=== PATIENT | female | born 1995 | race African-American/Black ===

== ENCOUNTER 2017-09-05 10:01 | Emergency (ER) | payer SELFPAY, OTHER | END 2017-09-05 12:10 | disposition home or self-care (01) | LOC: ERS 10:01 | DX: H10.9 Unspecified conjunctivitis (principal); F17.210 Nicotine dependence, cigarettes, uncomplicated | CPT/HCPCS: 99282 ==

== ENCOUNTER 2017-10-19 19:02 | Emergency (ER) | payer SELFPAY ==
[2017-10-19] MEDS ORDERED: Ibuprofen 800 MG TAB ONE (19:29)
[2017-10-19] MEDS ORDERED: Acetaminophen 500 MG TAB ONE (20:10)
== END 2017-10-19 20:12 | disposition home or self-care (01) ==
LOC: ERS 19:02
DX: J10.1 Influenza due to other identified influenza virus with other respiratory manifestations (principal); F17.210 Nicotine dependence, cigarettes, uncomplicated
CPT/HCPCS: 99283

== ENCOUNTER 2018-03-16 14:26 | Emergency (ER) | payer OTHER, SELFPAY ==
[2018-03-16] MEDS ORDERED: Lidocaine Viscous Sol 2% 15 ml UD Cup ONE (15:46)
[2018-03-16] MEDS ORDERED: Mag-Al 1200 mg/1200 mg/30 ML UDCUP ONE (15:46)
== END 2018-03-16 17:24 | disposition home or self-care (01) ==
LOC: ERS 14:26
DX: K59.00 Constipation, unspecified (principal); J40 Bronchitis, not specified as acute or chronic; F17.210 Nicotine dependence, cigarettes, uncomplicated
CPT/HCPCS: 99283

== ENCOUNTER 2018-04-01 22:50 | Emergency (ER) | payer SELFPAY ==
[2018-04-01 23:21] LABS: Pregnancy Test - Urine (BHCG) Negative (Negative); Pregu Control Background? CLEAR/WHITE (CLR/WHITE); Pregu Control Bar Appear? YES (CONTROL BAR); Specific Gravity 1.033 (1.002-1.036)
[2018-04-01 23:31] LABS: Bilirubin Small (Negative); Blood, Urine Negative (Negative); Clarity Cloudy (Clear); Glucose, Urine (Dipstick) Negative (Negative); Leukocyte Trace (Negative); Nitrite Negative (Negative); Protein, Urine (Dipstick) Trace mg/dL (Neg-Trace)
[2018-04-01 23:32] LABS: Bacteria/HPF 2+ HPF (None Seen); Hyaline Casts/LPF NONE SEEN LPF (0-3 Hyaline); RBC/HPF None Seen HPF (0-3); Specific Gravity, Urine 1.033 (1.002-1.036); WBC/HPF 0-3 HPF (0-3)
== END 2018-04-02 00:25 | disposition home or self-care (01) ==
LOC: SCSER 22:50
DX: A60.04 Herpesviral vulvovaginitis (principal)
CPT/HCPCS: 81003; 81015; 81025; 99283

== ENCOUNTER 2018-11-17 19:44 | Emergency (ER) | payer SELFPAY ==
[2018-11-17 20:27] LABS: #Basophils 0.1 thou/uL (0.0-0.2); #Eosinphils 0.2 thou/uL (0.0-0.7); #Lymphocytes 3.1 thou/uL (1.20-3.40); #Monocytes 0.5 thou/uL (0.11-0.59); #Neutrophils 6.1 thou/uL (1.40-6.50); %Basophils 0.8 % (0.0-1.0); %Eosinophils 2.4 % (0.0-10.0); %Lymphocytes 30.9 % (21.0-51.0); %Monocytes 5.4 % (0.0-10.0); %Neutrophils 60.5 % (42.0-75.0); Hemoglobin 11.7 g/dL (12.0-16.0); Mean Corpuscular Hemoglobin 27.1 pg (27.0-31.0); Mean Corpuscular Volume 84.7 fL (78.0-98.0); Mean Platelet Volume 9.3 fL (7.4-10.4); Platelet Count 336 thou/uL (130-400); RBC Distribution Width 13.6 % (11.5-14.5); Red Blood Cell (RBC) Count 4.34 mill/uL (4.20-5.40)
[2018-11-17 21:00] LABS: BHCG - Serum Negative (NEGATIVE); Pregs Control Background? CLEAR/WHITE (CLR/WHITE); Pregs Control Bar Appear? YES (CONTROL BAR)
== END 2018-11-17 21:35 | disposition home or self-care (01) ==
LOC: ERS 19:44
DX: N94.6 Dysmenorrhea, unspecified (principal); F17.210 Nicotine dependence, cigarettes, uncomplicated
CPT/HCPCS: 36415; 84703; 85025; 99284

== ENCOUNTER 2019-03-11 14:08 | Emergency (ER) | payer SELFPAY | END 2019-03-11 15:13 | disposition home or self-care (01) | LOC: ERS 14:08 | DX: M79.641 Pain in right hand (principal); F17.210 Nicotine dependence, cigarettes, uncomplicated | CPT/HCPCS: 99283 ==

== ENCOUNTER 2019-03-24 16:05 | Emergency (ER) | payer SELFPAY ==
[2019-03-24 17:04] LABS: Bilirubin Negative (Negative); Blood, Urine Negative (Negative); Clarity CLEAR (Clear); Glucose, Urine (Dipstick) Negative (Negative); Leukocyte Negative (Negative); Nitrite Negative (Negative); Protein, Urine (Dipstick) Negative (Neg-Trace); Urobilinogen 0.2 mg/dL (0.2-1.0); pH, Urine 6.5 (5.0-9.0)
--- NOTE | 2019-03-24 17:17 | ULT ---
OB ultrasound HISTORY: Early with history of fall. Multiple longitudinal and transverse images of the pelvis is obtained using multi hertz curvilinear t ransabdominal as well as endovaginal transducers. Real-time, color flow and M-mode sonography is used to evaluate the pelvis. The uterus measures 8.5 x 4.4 x 6.2 cm. There is a gestational sac and pole seen. Gestational sac measures 16 mm a gestational age of 6 weeks 3 days. [place]-rump length measures 5 mm giving a gestational age of 6 weeks 2 days. Overall the fetus has an estimated gestational age of 6 weeks 3 days and an estimated date of delivery of 11/04. Cardiac activity is confirmed measuring 102 beats minute. The right ovaries visualized with good blood flow. Right ovary measures 1.8 x 2.8 x 1.67 m. The left ovary is not visualized. Right ovarian corpus luteal cyst is seen. No evidence of free pelvic fluid seen. IMPRESSION: viable intrauterine with an estimated gestational age of 6 weeks 3 days and est imated date of delivery of 11/14/2019.
== END 2019-03-24 17:50 | disposition home or self-care (01) ==
LOC: ERS 16:05
DX: O99.89 Other specified diseases and conditions complicating pregnancy, childbirth and the puerperium (principal); R10.9 Unspecified abdominal pain; Z87.891 Personal history of nicotine dependence; Z3A.01 Less than 8 weeks gestation of pregnancy; W10.9XXA Fall (on) (from) unspecified stairs and steps, initial encounter
CPT/HCPCS: 36415; 76856; 81003; 84702

== ENCOUNTER 2019-05-03 11:27 | Emergency (ER) | payer MEDICAID, OTHER ==
[2019-05-03 12:43] LABS: Hemoglobin 10.9 g/dL (12.0-16.0); Mean Corpuscular Hemoglobin 25.1 pg (27.0-31.0); Mean Corpuscular Volume 78.3 fL (78.0-98.0); Mean Platelet Volume 9.9 fL (7.4-10.4); Platelet Count 312 thou/uL (130-400); RBC Distribution Width 16.6 % (11.5-14.5); Red Blood Cell (RBC) Count 4.33 mill/uL (4.20-5.40); White Blood Cell (WBC) Count 7.4 thou/uL (4.8-10.8)
[2019-05-03 12:58] LABS: ALT (SGPT) 36 U/L (8-55); AST (SGOT) 24 U/L (5-34); Albumin 3.8 g/dL (3.5-5.0); Alkaline Phosphatase 55 U/L (40-150); Anion Gap 13 mmol/L (10-20); BUN (Urea Nitrogen) 5 mg/dL (7.0-18.7); Bilirubin, Total 0.2 mg/dL (0.2-1.2); Calc. Creatinine Clearance 0 mL/min (70-130); Calcium 9.2 mg/dL (7.8-10.44); Carbon Dioxide 20 mmol/L (22-29); Chloride 106 mmol/L (98-107); Estimated GFR-MDRD Greater than 90; Globulin 3.3 g/dL (2.4-3.5); Glucose 98 mg/dL (70-105); Potassium 3.9 mmol/L (3.5-5.1); Protein, Total 7.1 g/dL (6.0-8.3); Sodium 135 mmol/L (136-145)
[2019-05-03 13:05] LABS: #Eosinphils 0.1 thou/uL (0.0-0.7); #Monocytes 0.4 thou/uL (0.11-0.59); #Neutrophils 4.9 thou/uL (1.40-6.50); %Basophils 0.5 % (0.0-1.0); %Eosinophils 1.6 % (0.0-10.0); %Lymphocytes 26.8 % (21.0-51.0); %Neutrophils 66.1 % (42.0-75.0); Hypochromia SLIGHT = 6-15 cells (100X) (0-5/hpf); MDiff Complete? YES; Platelet Morphology Comment Appears Adequate
[2019-05-03 13:27] LABS: Bilirubin Negative (Negative); Blood, Urine Small (Negative); Clarity CLOUDY (Clear); Glucose, Urine (Dipstick) Negative (Negative); Leukocyte Moderate (Negative); Nitrite Negative (Negative); Protein, Urine (Dipstick) Negative (Neg-Trace); Urobilinogen 0.2 mg/dL (0.2-1.0)
[2019-05-03 13:30] LABS: Bacteria/HPF None Seen HPF (None Seen); Hyaline Casts/LPF 0-3 HYALINE CAST LPF (0-3 Hyaline); Pathc Cast-AUWi Flag 0.54 (0-2.49); RBC/HPF 0-3 HPF (0-3); WBC/HPF 0-3 HPF (0-3)
--- NOTE | 2019-05-03 14:20 | ULT ---
PELVIC ULTRASOUND: Date: 05/03/19 COMPARISON: 03/24/19. HISTORY: Vaginal bleeding. Pain. TECHNIQUE: Transabdominal and endovaginal imaging of the pelvis is performed. Ovaries are interrogated with Krueger scale, color flow, Doppler imaging, and spectral waveform analysis. FINDINGS: Uterus is identified, measuring 12.0 x 5.9 x 6.8 cm. Within the endometrium is a gestational sac and pole. [place]-rump length is 4.80 cm, corresponding to a gestational age of 11 weeks/4 days. Feta l heart tones with a rate of 155 beats/minute. No subchorionic hemorrhage. Right ovary and left ovary are not appreciated. No obvious masses or fluid in the left or right adnex a. No significant free fluid in the pelvis. IMPRESSION: 1. Limited evaluation due to bowel gas and body habitus. No evidence of a subchorionic hemorrhage. N o evidence of mass or fluid in left/right hemipelvis. 2. Single intrauterine gestation with heart tones. Gestational age by crown-rump length is 11 weeks/4 days. POS: ANIA
== END 2019-05-03 14:12 | disposition home or self-care (01) ==
LOC: ERS 11:27
DX: O20.0 Threatened abortion (principal); Z3A.13 13 weeks gestation of pregnancy; Z87.891 Personal history of nicotine dependence; Z79.899 Other long term (current) drug therapy
CPT/HCPCS: 36415; 76856; 80053; 81003; 81015; 84702; 85025

== ENCOUNTER 2019-05-08 00:43 | Emergency (ER) | payer OTHER | END 2019-05-08 01:50 | disposition home or self-care (01) | LOC: ERS 00:43 | DX: O20.9 Hemorrhage in early pregnancy, unspecified (principal); Z3A.12 12 weeks gestation of pregnancy; Z87.891 Personal history of nicotine dependence | CPT/HCPCS: 99281 ==

== ENCOUNTER 2019-06-19 17:47 | Emergency (ER) | payer OTHER | END 2019-06-19 18:32 | disposition home or self-care (01) | LOC: ERS 17:47 | DX: O9A.212 Injury, poisoning and certain other consequences of external causes complicating pregnancy, second trimester (principal); S00.511A Abrasion of lip, initial encounter; O99.332 Smoking (tobacco) complicating pregnancy, second trimester; F17.210 Nicotine dependence, cigarettes, uncomplicated; Z79.899 Other long term (current) drug therapy; Z3A.18 18 weeks gestation of pregnancy; Y04.8XXA Assault by other bodily force, initial encounter | CPT/HCPCS: 99284 ==

== ENCOUNTER 2019-07-02 08:35 | Outpatient (CLI) | payer OTHER ==
--- NOTE | 2019-07-02 09:44 | ULT ---
OBSTETRICAL ULTRASOUND: DATE: 07/02/2019. COMPARISON: None. HISTORY: 23-year-old female undergoing assessment of size and dates. TECHNIQUE: Multiplanar grayscale sonographic imaging of the gravid uterus obtained. FINDINGS: Cervical length is 3.3 cm. There is a breech presentation. Placenta is located anteriorly, with no ev idence for previa or abruption. Four-chamber heart view appears grossly unremarkable. heart rate is 143 bpm. Region of the kidneys, umbilical cord insertion, and urinary bladder appears unremarkable. Thre e-vessel cord noted. spine is grossly unremarkable. nose and lips appear grossly unremarkable, not optimally visualized on this examination seconda ry to maternal body habitus and location of the face. intracranial contents appear grossly unremarkable. However, the posterior fossa could not be we ll visualized on this examination. biometry: BPD 4.5 cm 19 weeks 5 days HC 17.9 cm 20 weeks 3 days AC 15.3 cm 20 weeks 4 days FL 3.3 cm 20 weeks 2 days Average age patient on ultrasound is 20 weeks 2 days. Estimated weight is 349 g +/- 51 g (58th percentile). Estimated date of delivery is 11/18/2019. Amniotic fluid volume appears qualitatively normal. IMPRESSION: Intrauterine gestation as detailed above. Transcribed Date/Time: 07/02/2019 9:56 AM
== END 2019-07-02 08:36 | disposition home or self-care (01) ==
LOC: BICULT 08:35
DX: O09.892 Supervision of other high risk pregnancies, second trimester (principal); Z3A.20 20 weeks gestation of pregnancy
CPT/HCPCS: 76805

== ENCOUNTER 2019-07-19 22:15 | Emergency (ER) | payer OTHER | END 2019-07-19 22:40 | disposition home or self-care (01) | LOC: ERS 22:15 | DX: O99.612 Diseases of the digestive system complicating pregnancy, second trimester (principal); K04.7 Periapical abscess without sinus; O99.332 Smoking (tobacco) complicating pregnancy, second trimester; F17.210 Nicotine dependence, cigarettes, uncomplicated; Z3A.23 23 weeks gestation of pregnancy | CPT/HCPCS: 99282 ==

== ENCOUNTER 2019-09-20 11:27 | Emergency (ER) | payer OTHER | END 2019-09-20 13:47 | disposition left against medical advice (07) | LOC: ERS 11:27 | DX: Z53.21 Procedure and treatment not carried out due to patient leaving prior to being seen by health care provider (principal) ==

== ENCOUNTER 2019-11-06 09:44 | Day surgery (SDC) | payer MEDICAID ==
[2019-11-06] MEDS ORDERED: hydrALAZINE 20 MG/ML VIAL SLOW IVP PRN (10:41)
--- NOTE | 2019-11-06 14:53 | SS ---
DATE OF ADMISSION: 11/06/2019 DATE OF DISCHARGE: 11/06/2019 REGULAR PHYSICIAN: Regan Pichardo MD EVALUATING PHYSICIAN: Chris Pickard MD CHIEF COMPLAINT: Pelvic pressure. HISTORY OF PRESENT ILLNESS: Ms. Barth is a 23-year-old black G1, P0 with an estimated date of confinement of 11/18/2019, who presents complaining of pelvic pressure over the last 24 hours. She denies bleeding or rupture of membranes. Her care has been with Dr. Pichardo. PAST MEDICAL HISTORY: None. PAST SURGICAL HISTORY: None. CURRENT MEDICATIONS: 1. vitamins. 2. Iron. ALLERGIES: NO KNOWN ALLERGIES. SOCIAL HISTORY: Smokes a half a package of cigarettes per day. She denies drug use. FAMILY HISTORY: Unremarkable. REVIEW OF SYSTEMS: She denies nausea, vomiting, fever, chills, ruptured membranes, or vaginal bleeding. PHYSICAL EXAMINATION: VITAL SIGNS: Stable. She is afebrile. GENERAL: She is in no acute distress. ABDOMEN: Soft, nontender, and gravid. PELVIC: By the labor nurse shows the cervix to be closed and long. The patient is orally hydrated and her heart rate tracing is reassuring. Only an occasional contraction is seen. Of note is the fact that the patient left Labor and Delivery before her evaluation was complete. ASSESSMENT: 1. A 38-week intrauterine . 2. No evidence of active labor, suspect round ligament pain. PLAN: As mentioned above, the patient left Labor and Delivery on her own before she was discharged. I am uncertain when she has follow up again with Dr. Pichardo. Job ID: [id number]
== END 2019-11-06 10:35 | disposition left against medical advice (07) ==
LOC: L&D/OP 09:44
PROVIDERS: ATTEND Family Medicine
DX: O99.89 Other specified diseases and conditions complicating pregnancy, childbirth and the puerperium (principal); R10.2 Pelvic and perineal pain; O99.333 Smoking (tobacco) complicating pregnancy, third trimester; F17.210 Nicotine dependence, cigarettes, uncomplicated; Z3A.38 38 weeks gestation of pregnancy; Z79.899 Other long term (current) drug therapy
CPT/HCPCS: 99281

== ENCOUNTER 2019-11-19 11:53 | Inpatient (IN) | payer OTHER ==
[2019-11-19] MEDS: Lactated Ringer's 1,000 ML IV SCH (13:30)
[2019-11-19] MEDS ORDERED: Promethazine HCl 25 MG/ML VIAL IM PRN (13:59)
[2019-11-19] MEDS ORDERED: Lidocaine 1% (PF) 30 ML VIAL SC PRN (13:59)
[2019-11-19] MEDS ORDERED: Carboprost 250 MCG/ML AMP IM PRN (13:59)
[2019-11-19] MEDS ORDERED: hydrALAZINE 20 MG/ML VIAL SLOW IVP PRN (13:59)
[2019-11-19] MEDS ORDERED: Misoprostol 200 MCG TAB PR PRN (13:59)
[2019-11-19] MEDS ORDERED: Ibuprofen 800 MG TAB PO PRN (13:59)
[2019-11-19] MEDS ORDERED: Methylergonovine 0.2 MG/ML VIAL IM PRN (13:59)
[2019-11-19] MEDS ORDERED: Butorphanol Tartrate 1 MG/ML VIAL SLOW IVP PRN (13:59)
[2019-11-19] MEDS ORDERED: Diphenoxylate HCl/Atropine Tablet PO PRN (13:59)
[2019-11-19] MEDS ORDERED: Ondansetron PF 4 MG/2 ML Vial IVP PRN (13:59)
[2019-11-19] MEDS ORDERED: NS / Oxytocin 40 units/1000ml 1,000 ML IV PRN (13:59)
[2019-11-19] MEDS ORDERED: HYDROcodone/Acetaminophen 5/325 mg Tablet PO PRN (13:59)
[2019-11-19] MEDS ORDERED: Misoprostol 100 MCG TAB ONE (14:14)
[2019-11-19] MEDS: Misoprostol 100 MCG TAB PO SCH ×2 (14:33→18:44)
[2019-11-19 14:47] VITALS: BMI 49.6
[2019-11-19 14:49] LABS: Hemoglobin 9.6 g/dL (12.0-16.0); Mean Corpuscular Hemoglobin 24.5 pg (27.0-31.0); Mean Corpuscular Volume 74.3 fL (78.0-98.0); Mean Platelet Volume 10.6 fL (7.4-10.4); Platelet Count 287 thou/uL (130-400); RBC Distribution Width 17.6 % (11.5-14.5); Red Blood Cell (RBC) Count 3.91 mill/uL (4.20-5.40); White Blood Cell (WBC) Count 8.7 thou/uL (4.8-10.8)
[2019-11-19 15:36] LABS: HBSAg Index 0.29 S/CO (0-0.99); Hep B Surf Ag Non-Reactive S/CO (NonReactive)
[2019-11-19 15:45] LABS: Syphilis Antibody Nonreactive (Nonreactive); Syphilis Antibody Index 0.05 S/CO (<1.00 Non-Reactive)
[2019-11-19 21:06] LABS: Medtox Reader # READER 4; Phencyclidine (PCP) Not Detected (NotDetected); THC/Cannabinoid Screen Not Detected (NotDetected)
[2019-11-19 21:07] LABS: Amphetamine Not Detected (NotDetected); Barbiturates Screen Not Detected (NotDetected); Benzodiazepine Screen Not Detected (NotDetected); Cocaine Metabolite Screen Not Detected (NotDetected); Medtox Control Line Valid? VALID (VALID); Methadone Not Detected (NotDetected); Methamphetamine Not Detected (NotDetected); Opiate Screen Not Detected (NotDetected); Oxycodone Screen Not Detected (NotDetected); Tricyclic Screen Not Detected (NotDetected)
[2019-11-20 03:13] LABS: Amphetamine Not Detected (NotDetected); Barbiturates Screen Not Detected (NotDetected); Benzodiazepine Screen Not Detected (NotDetected); Cocaine Metabolite Screen Not Detected (NotDetected); Medtox Control Line Valid? VALID (VALID); Medtox Reader # READER 4; Methadone Not Detected (NotDetected); Methamphetamine Not Detected (NotDetected); Opiate Screen Not Detected (NotDetected); Oxycodone Screen Not Detected (NotDetected); Phencyclidine (PCP) Not Detected (NotDetected); THC/Cannabinoid Screen Not Detected (NotDetected); Tricyclic Screen Not Detected (NotDetected)
[2019-11-20] MEDS ORDERED: Misoprostol 100 MCG TAB ONE ×3 (08:13→22:35)
[2019-11-20] MEDS: Lactated Ringer's 1,000 ML IV SCH (17:25)
[2019-11-20] MEDS: Misoprostol 100 MCG TAB PO SCH (22:44)
--- NOTE | 2019-11-22 13:02 | DIS ---
DATE OF ADMISSION: 11/19/2019 DATE OF DISCHARGE: 11/21/2019 (against medical advice). PRINCIPAL DIAGNOSIS: The patient requested induction of labor. OPERATIVE PROCEDURES: None. CONSULTANTS: None. BRIEF HISTORY: Ms. Barth is a 24 year old G1, at 40 weeks and 3 days estimated gestational age with an EDC of 11/16/2019, admitted for induction of labor at her request. Uneventful care, complicated only by morbid obesity. Exam on admission was unremarkable. Her vital signs were stable and there were no abnormal findings. Her cervix was closed and thick. HOSPITAL COURSE: Ms. Barth was admitted to Labor and Delivery on the afternoon of 11/19/2019. She underwent attempted cervical ripening with Cytotec and received two doses. At approximately 2:30 in the morning, she reported to the nurse that it was taking too long and she wanted to leave. She also complained about being unable to sleep and the monitoring demands, which made it uncomfortable for her to rest as well. It was explained to her at that point that monitoring was necessary given the medication that she had received. However, she persisted and signed out against medical advice and left the unit. She returned approximately an hour later when no one in her family would come and pick her up in the middle of the night. For unknown reasons, the nursing staff simply resumed her induction using her previous orders without seeking clarification from me. She received another dose of Cytotec after her return. When I arrived in the morning, I spoke with her at length with Elvia Jackson RN also present and I explained that elective induction of labor was completely her decision and we did not have to proceed with elective induction of labor at 40 weeks, if she did not want to be there. Her other options included continuing with the induction of labor for one more dose of Cytotec, which may or may not result in labor. If not, then her options would be to go home or to rest, eat, and shower in the department and resume a second course of Cytotec after 5:00 p.m. Her other option was delivery via the afternoon of the . I explained the role of Cytotec and how medications like these could be potentially danger and stressful for the fetus, and that was the rationale for our insistence of continued monitoring. I explained if she wanted to be induced, she would have to tolerate monitoring and that the nursing staff and I had two patients to consider-- her and her baby. After deliberation, she agreed to try a 4th dose of Cytotec at 8:00 a.m. and 4 hours after that, her cervix was still unchanged. She was allowed to eat and shower and sleep for a short while, unmonitored. She decided to attempt another course of Cytotec which was resumed at approximately 5:00 p.m. on 11/20/2019. After 3 doses of Cytotec, she again informed the nurses that this was taking too long and she was hungry and uncomfortable and she wanted to go home. She again signed out against medical advice despite being completely and meticulously informed of the risk of injury or being explained to her. Her followup at the time of discharge is unknown, although I anticipate hearing from her within 2 days in the office. She was given labor precautions and kick count precautions prior to her leaving [facility]. DISCHARGE INSTRUCTIONS: 1. Activity: As tolerated. 2. Instructions: Kick counts, labor precautions. 3. Followup: Follow up p.r.n. 4. Medications: None. Job ID: [id number] [facility]
== END 2019-11-21 05:00 | disposition home or self-care (01) | DRG 833 ==
LOC: L&D 11:53
PROVIDERS: ADMIT Family Medicine; ATTEND Family Medicine
PROC: 3E033VJ Introduction of Other Hormone into Peripheral Vein, Percutaneous Approach (ICD-10-PCS; principal; 2019-11-19)
DX: O99.213 Obesity complicating pregnancy, third trimester (principal); Z3A.40 40 weeks gestation of pregnancy; E66.01 Morbid (severe) obesity due to excess calories
CPT/HCPCS: 80306; 85027; 86780; 86850; 86900; 86901; 87340

== ENCOUNTER 2019-11-24 10:32 | Inpatient (IN) | payer OTHER ==
[2019-11-24] MEDS ORDERED: Dexamethasone 20 MG/5 ML VIAL ONE (11:11)
[2019-11-24] MEDS ORDERED: PHENYLEPHRINE-NS 100 MCG/ML 10 ML SYRINGE ONE (11:11)
[2019-11-24] MEDS ORDERED: Ketorolac Tromethamine 30 MG/ML VIAL ONE (11:11)
[2019-11-24] MEDS ORDERED: ePHEDrine/0.9% NaCl/PF SYRINGE 50 mg/10 ml ONE (11:11)
[2019-11-24] MEDS ORDERED: Ondansetron PF 4 MG/2 ML Vial ONE (11:11)
[2019-11-24] MEDS ORDERED: Metoclopramide HCl 10 MG/2 ML VIAL ONE (11:11)
[2019-11-24 11:22] VITALS: BMI 48.2
[2019-11-24] MEDS ORDERED: Ondansetron PF 4 MG/2 ML Vial IVP PRN ×3 (11:30→16:46)
[2019-11-24] MEDS ORDERED: Lactated Ringer's 1,000 ML IV SCH (11:30)
[2019-11-24] MEDS ORDERED: Bicitra 30 ML UDCUP PO SCH (11:30)
[2019-11-24] MEDS ORDERED: Azithromycin 500 MG in Sodium Chloride 0.9% 250 ML 250 ML IVPB SCH (11:30)
[2019-11-24] MEDS ORDERED: hydrALAZINE 20 MG/ML VIAL SLOW IVP PRN ×2 (11:30→16:46)
[2019-11-24] MEDS ORDERED: CEFAZOLIN 3 GM in Premix Bag 1 BAG IVPB SCH (11:30)
[2019-11-24] MEDS ORDERED: Promethazine HCl 25 MG/ML VIAL IM PRN ×3 (11:30→16:46)
[2019-11-24 12:03] LABS: Hemoglobin 9.1 g/dL (12.0-16.0); Mean Corpuscular HGB CONC 32.2 g/dL (32.0-36.0); Mean Corpuscular Hemoglobin 24.1 pg (27.0-31.0); Mean Corpuscular Volume 74.9 fL (78.0-98.0); Mean Platelet Volume 10.8 fL (7.4-10.4); Platelet Count 230 thou/uL (130-400); RBC Distribution Width 17.7 % (11.5-14.5); Red Blood Cell (RBC) Count 3.76 mill/uL (4.20-5.40); White Blood Cell (WBC) Count 8.9 thou/uL (4.8-10.8)
[2019-11-24] MEDS ORDERED: Famotidine/PF 20 mg/2ml Vial ONE (12:09)
[2019-11-24] MEDS ORDERED: MORPHINE 5 MG/10 ML PF VIAL ONE (12:23)
[2019-11-24] MEDS ORDERED: Oxytocin 10 UNITS/ML VIAL ONE ×2 (12:23→13:21)
[2019-11-24 13:05] LABS: Syphilis Antibody Nonreactive (Nonreactive); Syphilis Antibody Index 0.05 S/CO (<1.00 Non-Reactive)
[2019-11-24 13:06] LABS: HBSAg Index 0.28 S/CO (0-0.99); Hep B Surf Ag Non-Reactive S/CO (NonReactive)
[2019-11-24] MEDS ORDERED: diphenhydrAMINE 50 MG/ML VIAL IVP PRN (13:53)
[2019-11-24] MEDS ORDERED: L&D-Morphine 4 MG/ML VIAL SLOW IVP PRN (13:53)
[2019-11-24] MEDS ORDERED: HYDROmorphone 2 MG/ML VIAL SLOW IVP PRN (13:53)
[2019-11-24] MEDS ORDERED: Naloxone HCl 0.4 mg/ml Vial IV PRN (13:53)
[2019-11-24] MEDS ORDERED: Promethazine HCl 25 MG SUPP PR PRN (13:53)
[2019-11-24] MEDS ORDERED: Ondansetron HCl/PF 4 MG/2 ML Vial IVP PRN (13:53)
[2019-11-24] MEDS ORDERED: Naloxone HCl 0.4 mg/ml Vial IVP PRN ×2 (13:53)
[2019-11-24] MEDS ORDERED: Meperidine HCl/PF 25 MG/ML VIAL SLOW IVP PRN (13:53)
[2019-11-24] MEDS ORDERED: Communication Order-Pharmacy FS SCH (14:00)
[2019-11-24] MEDS ORDERED: Meperidine HCl/PF 25 MG/ML VIAL ONE (14:45)
--- NOTE | 2019-11-24 16:22 | OP ---
DATE OF PROCEDURE: 11/24/2019 ATTENDING SURGEON: Regan Pichardo MD RESIDENT SURGEON: Dr. Arnulfo Crowley. PROCEDURE PERFORMED: Primary low-transverse section. PREOPERATIVE DIAGNOSES: 1. Postdates . 2. Failed induction of labor x2. 3. Morbid Obesity POSTOPERATIVE DIAGNOSIS: 1. Postdates 2. Failed induction of labor x 2 3. Morbid Obesity ANESTHESIA: Spinal. INDICATIONS: The patient is a 24-year-old, G1, P0 female at 41 and 1 weeks' gestation who presents for primary low transverse section after failed induction of labor x2. PROCEDURE IN DETAIL: After risks, benefits, and alternatives were explained to the patient, she gave informed consent. Preoperative antibiotics included 3 g Ancef IV as well as 500 mg azithromycin. The patient was taken to the operating room, and spinal anesthesia was initiated. She was placed in supine position with a left toe prepped and draped in usual sterile fashion. A Pfannenstiel incision was made with a scalpel and carried down to the level of fascia, which was sharply nicked. The fascial cut was extended bilaterally with Mckeon scissors. Inferior and superior edges of the cut fascial edges were elevated with Nelly clamps, and the underlying rectus muscles were sharply and bluntly dissected free. At this point, bleeders were cauterized with Bovie cauterization and hemostasis was noted. The recti were then divided digitally and retracted manually. The peritoneum was entered bluntly and retracted manually. Bladder blade was placed. A low transverse score was made with a scalpel, and the uterus was entered in the midline with scalpel. Clear fluid was seen. The hysterotomy was extended manually. The infant was noted to be vertex, and vacuum was applied for delivery of the head in addition to fundal pressure. Delivery was accomplished in a single pull of the vacuum with no pop- offs; max pressure was 44mmgHG; Subsequently, the mouth and nares were bulb suctioned. The cord was clamped and cut, and grossly normal male infant was handed to the waiting nurse. Cord blood was obtained. Placenta was delivered spontaneously, found to be intact with 3-vessel cord and discarded. Uterus was externalized, and the endometrium was curetted with dry lap. The bladder blade was replaced, and the uterus was closed with a running locking 1 Monocryl suture followed by a single [id number] 1 Monocryl suture. Following this, hemostasis was noted. The abdomen was irrigated with saline and suctioned free of clots. Uterus was then internalized, and the hysterotomy was again noted to be hemostatic. At this point, the rectus muscle was noted to be oozy and was repaired with a 0 Vicryl suture. An additional 0 Vicryl [id number] suture was placed and following this, hemostasis was noted. Subsequently, the fascia was closed with a running nonlocking 0 PDS suture. Subcutaneous tissues were irrigated and there were no bleeders. Subcutaneous tissues were approximated with 3 interrupted sutures of 3-0 Vicryl. The skin was then approximated with priyanka, and a wound VAC was placed. All counts were correct. The patient tolerated the procedure well and was taken to recovery room in stable condition. ESTIMATED BLOOD LOSS: 400 mL. COMPLICATIONS: None. SPECIMENS: Cord blood sent to lab for blood type. FINDINGS: 1. Grossly normal male infant with Apgars of 8 and 9 at one and five minutes respectively. 2. Grossly normal placenta, 3-vessel cord discarded. DRAINS: [place] to gravity draining clear urine. [facility] ID: [id number] [facility]
[2019-11-24] MEDS ORDERED: NS / Oxytocin 40 units/1000ml 1,000 ML ONE (16:34)
[2019-11-24] MEDS ORDERED: Bisacodyl 10 MG SUPP PR PRN (16:46)
[2019-11-24] MEDS ORDERED: diphenhydrAMINE 25 MG CAP PO PRN (16:46)
[2019-11-24] MEDS ORDERED: NS / Oxytocin 40 units/1000ml 1,000 ML IV SCH (16:46)
[2019-11-24] MEDS: Ketorolac Tromethamine 30 MG/ML VIAL IVP SCH (20:43)
[2019-11-24] MEDS ORDERED: Ketorolac Tromethamine 30 MG/ML VIAL IVP PRN (22:00)
[2019-11-24] MEDS: Docusate Calcium (SURFAK) 240 MG CAP PO SCH (22:47)
[2019-11-24] MEDS: Ferrous Sulfate 325 MG TAB PO SCH (22:47)
[2019-11-25] MEDS: Ketorolac Tromethamine 30 MG/ML VIAL IVP SCH ×2 (02:32→08:27)
[2019-11-25 06:46] LABS: Hemoglobin 7.7 g/dL (12.0-16.0); Mean Corpuscular HGB CONC 32.6 g/dL (32.0-36.0); Mean Corpuscular Hemoglobin 24.7 pg (27.0-31.0); Mean Corpuscular Volume 75.6 fL (78.0-98.0); Mean Platelet Volume 10.7 fL (7.4-10.4); Platelet Count 230 thou/uL (130-400); RBC Distribution Width 17.4 % (11.5-14.5); Red Blood Cell (RBC) Count 3.13 mill/uL (4.20-5.40); White Blood Cell (WBC) Count 18.8 thou/uL (4.8-10.8)
[2019-11-25] MEDS ORDERED: Sodium Chloride 0.9% 10 ML ONE (08:22)
[2019-11-25] MEDS: Docusate Calcium (SURFAK) 240 MG CAP PO SCH (08:29)
[2019-11-25] MEDS: Ferrous Sulfate 325 MG TAB PO SCH (08:29)
[2019-11-25] MEDS: Simethicone Chewable 80 MG TAB PO PRN ×2 (08:29→16:33)
[2019-11-25] MEDS: HYDROcodone/Acetaminophen 5/325 mg Tablet PO PRN ×4 (08:29→21:05)
[2019-11-25] MEDS: Prenatal Vitamin 1 TAB PO SCH (08:29)
[2019-11-25] MEDS ORDERED: Adacel (T-DAP) 0.5 ML SYRINGE IM ONE (09:00)
[2019-11-25] MEDS: Ibuprofen 800 MG TAB PO SCH (15:39)
[2019-11-26] MEDS: Ibuprofen 800 MG TAB PO SCH ×4 (00:12→21:31)
[2019-11-26] MEDS: Simethicone Chewable 80 MG TAB PO PRN ×3 (00:12→21:31)
[2019-11-26] MEDS: HYDROcodone/Acetaminophen 5/325 mg Tablet PO PRN ×6 (01:47→22:57)
[2019-11-26] MEDS: Ferrous Sulfate 325 MG TAB PO SCH ×3 (01:47→21:30)
[2019-11-26] MEDS: Docusate Calcium (SURFAK) 240 MG CAP PO SCH ×3 (01:47→21:30)
[2019-11-26] MEDS: Prenatal Vitamin 1 TAB PO SCH (09:06)
[2019-11-27] MEDS: HYDROcodone/Acetaminophen 5/325 mg Tablet PO PRN ×3 (03:07→12:02)
[2019-11-27] MEDS: Ibuprofen 800 MG TAB PO SCH ×2 (05:26→14:08)
[2019-11-27] MEDS: Prenatal Vitamin 1 TAB PO SCH (07:36)
[2019-11-27] MEDS: Docusate Calcium (SURFAK) 240 MG CAP PO SCH (07:36)
[2019-11-27] MEDS: Ferrous Sulfate 325 MG TAB PO SCH (07:36)
[2019-11-27] MEDS: Simethicone Chewable 80 MG TAB PO PRN (07:37)
[2019-11-27 07:51] VITALS: BP 121/68; TEMP 97.9
== END 2019-11-27 14:50 | disposition home or self-care (01) | DRG 788 ==
LOC: L&D 10:32 → 3SW 17:08
PROVIDERS: ADMIT Family Medicine; ATTEND Family Medicine
PROC: 10D00Z1 Extraction of Products of Conception, Low, Open Approach (ICD-10-PCS; principal; 2019-11-24)
DX: O99.214 Obesity complicating childbirth (principal); E66.01 Morbid (severe) obesity due to excess calories; O99.02 Anemia complicating childbirth; D64.9 Anemia, unspecified; Z3A.41 41 weeks gestation of pregnancy; Z37.0 Single live birth; O48.0 Post-term pregnancy; O61.9 Failed induction of labor, unspecified
CPT/HCPCS: 36415; 51702; 85027; 86780; 86850; 86900; 86901; 87340; J0456; J1100; J1200; J1885; J2175; J2274; J2405; J2590; J2765; J7050; S0028

== ENCOUNTER 2020-04-07 22:39 | Emergency (ER) | payer OTHER | END 2020-04-08 00:39 | disposition left against medical advice (07) | LOC: ERS 22:39 | DX: Z53.21 Procedure and treatment not carried out due to patient leaving prior to being seen by health care provider (principal) ==

== ENCOUNTER 2021-04-26 22:24 | Emergency (ER) | payer OTHER | END 2021-04-27 00:39 | disposition home or self-care (01) | LOC: ERS 22:24 | DX: J02.9 Acute pharyngitis, unspecified (principal); F17.210 Nicotine dependence, cigarettes, uncomplicated | CPT/HCPCS: 71045 ==

== ENCOUNTER → 2022-03-02 21:29 | Emergency (ER) | payer OTHER ==
[2022-03-03 15:49] LABS: SARS-CoV-2 PCR by NAA Not Detected (NotDetected)
== END | disposition home or self-care (01) ==
LOC: ERS 21:29
DX: R11.10 Vomiting, unspecified (principal); Z20.822 Contact with and (suspected) exposure to COVID-19
CPT/HCPCS: 99283; U0003; U0005

== ENCOUNTER 2022-09-28 12:00 | Emergency (ER) | payer OTHER | END 2022-09-28 12:49 | disposition home or self-care (01) | LOC: ERS 12:00 | DX: H66.92 Otitis media, unspecified, left ear (principal) | CPT/HCPCS: 99282 ==

== ENCOUNTER 2023-10-18 01:44 | Emergency (ER) | payer OTHER, SELFPAY ==
[2023-10-18] MEDS ORDERED: predniSONE 20 MG TAB ONE (02:14)
== END 2023-10-18 02:18 | disposition home or self-care (01) ==
LOC: ERS 01:44
DX: R21 Rash and other nonspecific skin eruption (principal); F17.210 Nicotine dependence, cigarettes, uncomplicated
CPT/HCPCS: 99282; J7512

== ENCOUNTER 2025-08-27 19:20 | Emergency (ER) | payer OTHER ==
[2025-08-27 20:22] LABS: #Basophils 0.04 10x3/uL (0.0-0.2); #Eosinophils 0.28 10x3/uL (0.0-0.7); #Monocytes 0.59 10x3/uL (0.11-0.59); #Neutrophils 4.85 10x3/uL (1.40-6.50); %Basophils 0.4 % (0.0-1.0); %Eosinophils 3.1 % (0.0-10.0); %Lymphocytes 35.2 % (21.0-51.0); %Monocytes 6.6 % (0.0-10.0); %Neutrophils 54.4 % (42.0-75.0); Hematocrit 41.1 % (36.0-47.0); Hemoglobin 12.8 g/dL (12.0-16.0); Mean Corpuscular Hemoglobin 27.4 pg (27.0-31.0); Mean Corpuscular Volume 87.8 fL (78.0-98.0); Platelet Count 360 10x3/uL (130-400); Red Blood Cell (RBC) Count 4.68 mill/uL (4.20-5.40); White Blood Cell (WBC) Count 8.93 10x3/uL (4.8-10.8)
[2025-08-27 20:33] LABS: BHCG - Serum Negative (NEGATIVE); Pregs Control Background? CLEAR/WHITE (CLR/WHITE); Pregs Control Bar Appear? YES (CONTROL BAR)
[2025-08-27 20:39] LABS: ALT (SGPT) 9 U/L (Less than 34); AST (SGOT) 14 U/L (11-34); Albumin 3.6 g/dL (3.1-4.5); Alkaline Phosphatase 50 U/L (40-110); Anion Gap 11 mmol/L (10-20); BUN (Urea Nitrogen) 5 mg/dL (7.0-18.7); Bilirubin, Total 0.2 mg/dL (0.3-1.2); Calc. Creatinine Clearance 0 mL/min (70-130); Calcium 9.2 mg/dL (7.8-10.44); Carbon Dioxide 26 mmol/L (22-29); Chloride 104 mmol/L (98-107); Globulin 3.2 g/dL (2.4-3.5); Glucose 105 mg/dL (70-105); Lipase 12 U/L (8-78); Potassium 4.5 mmol/L (3.5-5.1); Sodium 136 mmol/L (136-145)
== END 2025-08-27 21:20 | disposition home or self-care (01) ==
LOC: ERS 19:20
DX: R07.89 Other chest pain (principal); F17.210 Nicotine dependence, cigarettes, uncomplicated
CPT/HCPCS: 36415; 71045; 80053; 83690; 84484; 84703; 85025; 93005

== ENCOUNTER 2025-09-15 17:55 | Emergency (ER) | payer OTHER, SELFPAY | END 2025-09-15 20:14 | disposition home or self-care (01) | LOC: ERS 17:55 | DX: L02.811 Cutaneous abscess of head [any part, except face] (principal); F17.210 Nicotine dependence, cigarettes, uncomplicated | CPT/HCPCS: 36416; 99283 ==

== ENCOUNTER 2025-10-30 14:02 | Emergency (ER) | payer SELFPAY ==
[2025-10-30 17:27] LABS: #Basophils Less than 0.03 10x3/uL (0.0-0.2); #Eosinophils 0.11 10x3/uL (0.0-0.7); #Monocytes 0.49 10x3/uL (0.11-0.59); #Neutrophils 4.75 10x3/uL (1.40-6.50); %Basophils 0.1 % (0.0-1.0); %Eosinophils 1.4 % (0.0-10.0); %Lymphocytes 30.7 % (21.0-51.0); %Monocytes 6.3 % (0.0-10.0); %Neutrophils 61.2 % (42.0-75.0); Hematocrit 36.8 % (36.0-47.0); Hemoglobin 11.9 g/dL (12.0-16.0); Mean Corpuscular Hemoglobin 26.2 pg (27.0-31.0); Mean Corpuscular Volume 81.1 fL (78.0-98.0); Platelet Count 311 10x3/uL (130-400); Red Blood Cell (RBC) Count 4.54 mill/uL (4.20-5.40); White Blood Cell (WBC) Count 7.76 10x3/uL (4.8-10.8)
[2025-10-30 17:39] LABS: Bacteria/HPF None Seen HPF (None Seen); CAUTI Indications for Culture Dysuria,urgency,freq; Glucose, Urine (Dipstick) Greater than 1000 mg/dL (Negative); Leukocyte 25 Leu/uL (Negative); Protein, Urine (Dipstick) Negative (Neg-Trace); RBC/HPF 0-3 HPF (0-3); Specific Gravity, Urine 1.030 (1.002-1.036); WBC/HPF 0-3 HPF (0-3)
[2025-10-30 17:41] LABS: Urine Culture Reflex No No
[2025-10-30 17:55] LABS: ALT (SGPT) 9 U/L (Less than 34); AST (SGOT) 16 U/L (11-34); Albumin 3.6 g/dL (3.1-4.5); Alkaline Phosphatase 81 U/L (40-110); Anion Gap 19 mmol/L (10-20); BUN (Urea Nitrogen) 8 mg/dL (7.0-18.7); Bilirubin, Total 0.2 mg/dL (0.3-1.2); Calc. Creatinine Clearance 0 mL/min (70-130); Calcium 9.3 mg/dL (7.8-10.44); Carbon Dioxide 19 mmol/L (22-29); Chloride 92 mmol/L (98-107); Globulin 3.9 g/dL (2.4-3.5); Glucose 807 mg/dL (70-105); Lipase 23 U/L (8-78); Potassium 4.5 mmol/L (3.5-5.1); Sodium 125 mmol/L (136-145)
[2025-10-30 19:05] LABS: Actual Bicarbonate (HCO3v) 19.4 mEq/L (22-28); Base Excess -7.5 mEq/L (-2.0 to +3.0); Calcium, Ionized (venous) 1.07 mmol/L (1.16-1.32); Chloride (VBG) 93 mmol/L (98-106); Hematocrit-VBG 38 % (36.0-47.0); Hemoglobin (Hb) 13.0 g/dL (11.7-15.5); Sodium 122 mmol/L (133-146)
[2025-10-30 19:06] LABS: Potassium (VBG) 6.94 mmol/L (3.70-5.30)
== END 2025-10-30 20:40 | disposition short-term general hospital (02) ==
LOC: ERS 14:02
DX: O24.111 Pre-existing type 2 diabetes mellitus, in pregnancy, first trimester (principal); E11.65 Type 2 diabetes mellitus with hyperglycemia; O99.331 Smoking (tobacco) complicating pregnancy, first trimester; F17.210 Nicotine dependence, cigarettes, uncomplicated; Z3A.01 Less than 8 weeks gestation of pregnancy
CPT/HCPCS: 36416; 76856; 80053; 81001; 82010; 82805; 83690; 84702; 85025; 86900; 86901; 93976; 96374; J1815